=== PATIENT | male | born 1995 | race Hispanic/Latino ===

== ENCOUNTER 2018-09-22 00:44 | Emergency (ER) | payer OTHER | END 2018-09-22 01:27 | disposition home or self-care (01) | LOC: EDH 00:44 | DX: S60.212A Contusion of left wrist, initial encounter (principal); Z72.0 Tobacco use; Z79.899 Other long term (current) drug therapy; X58.XXXA Exposure to other specified factors, initial encounter; Y93.89 Activity, other specified; Y92.89 Other specified places as the place of occurrence of the external cause; Y99.8 Other external cause status | CPT/HCPCS: 82948 ==